=== PATIENT | female | born 1990 | race Caucasian/White ===

== ENCOUNTER 2021-05-12 11:40 | Emergency (ER) | payer SELFPAY ==
[~2021-05-12] VITALS: Ht 170.2 cm; Wt 61.2 kg
--- NOTE | 2021-05-12 11:50 | NUR ---
LOWER ABDOMINAL PAIN/CRAMPING X TODAY S/P START OF MENSTRUAL PERIOD. PATIENT A/OX4, BREATHING EVEN AND UNLABORED, NO SOB NOTED. NEEDS ATTENDED. AMBULATORY WITH STEADY GAIT,.
--- NOTE | 2021-05-12 11:55 | NUR ---
DR. CHARLES AT BEDSIDE FOR EVAL.
[2021-05-12] MEDS ORDERED: ONDANSETRON HCL/PF 4 MG/2 ML VIAL IVP ONE (12:00)
[2021-05-12] MEDS ORDERED: KETOROLAC TROMETHAMINE INJ 30 MG/ML VIAL IV ONE (12:00)
[2021-05-12] MEDS ORDERED: ONDANSETRON HCL/PF 4 MG/2 ML VIAL ONE (12:02)
[2021-05-12] MEDS ORDERED: KETOROLAC TROMETHAMINE 15 MG/ML VIAL ONE (12:02)
--- NOTE | 2021-05-12 12:08 | NUR ---
PATIENT REFUSED IV HEPLOCK AND IV MEDICATIONS AT THIS TIME. PER PATIENT SHE'S NOT NAUSEOUS AND PAIN IS TOLERABLE AT THIS TIME. DR. CHARLES AWARE.
[2021-05-12 13:01] LABS: EOSINOPHILS % (AUTO) 0.6 % (0.0-6.0); HEMOGLOBIN 14.2 g/dL (11.5-14.8); MEAN CORPUSCULAR VOLUME 89 fL (82-100); WHITE BLOOD COUNT (AUTO) 6.3 K/uL (4.3-11.0)
[2021-05-12 13:02] LABS: BILIRUBIN,URINE Negative (NEGATIVE); COLOR,URINE YELLOW (YELLOW); LEUKOCYTE ESTERASE ,URINE Negative (NEGATIVE); NITRITE, URINE Negative (NEGATIVE); PH,URINE 5.5 (5.0-8.0); PROTEIN,URINE Negative (NEGATIVE); UGLUCOSE Negative (NEGATIVE); UROBILINOGEN,URINE 0.2 EU/dL (0.2)
[2021-05-12 13:06] LABS: BASOPHILS % (AUTO) 0.3 % (0.0-2.0); HEMATOCRIT 43 % (33-45); LYMPHOCYTES # (AUTO) 0.8 K/uL (0.8-4.8); LYMPHOCYTES % (AUTO) 12.8 % (20.0-44.0); MEAN CORPUSCULAR HGB CONC 33 g/dl (31.0-36.0); MONOCYTES # (AUTO) 0.4 K/uL (0.1-1.30); MONOCYTES % (AUTO) 6.2 % (2.0-12.0); NEUTROPHILS % (AUTO) 80.1 % (43.0-81.0); PLATELET COUNT (AUTO) 293 K/uL (150-450); RED BLOOD CELL COUNT(AUTO) 4.81 MIL/uL (4.0-5.2)
[2021-05-12 13:06] LABS: BACTERIA,URINE Rare /HPF (None Seen); RBC,URINE 21-50 /HPF (0-2); SQUAMOUS EPITHELIAL CELL,UR Few /HPF (None Seen); WBC,URINE NONE SEEN /HPF (0-3)
[2021-05-12 13:14] LABS: ALBUMIN 4.3 g/dL (3.4-5.0); BILIRUBIN,DIRECT 0.1 mg/dL (0.0-0.2); BILIRUBIN,TOTAL 0.5 mg/dL (0.2-1.0); CALCIUM, SERUM 8.9 mg/dL (8.5-10.1); CREATININE 0.7 mg/dL (0.6-1.3); TOTAL PROTEIN, SERUM 8.2 g/dL (6.4-8.2)
--- NOTE | 2021-05-12 13:39 | NUR ---
PATIENT A/OX4, BREATHING EVEN AND UNLABORED, NO SOB NOTED. NEEDS ATTENDED. Pain improved. Patient discharged to home in stable condition. Written and verbal after care instructions given. Patient verbalizes understanding of instruction.
[2021-05-12 13:40] VITALS: BP 122/70
== END 2021-05-12 13:40 | disposition home or self-care (01) ==
LOC: ER 11:42
DX: R10.2 Pelvic and perineal pain (principal)
CPT/HCPCS: 36415; 76856-TC; 80048-TC; 80076-TC; 81001; 84703-TC; 85025-TC; 87086-TC; J1885; J2405